=== PATIENT | female | born 1960 | race Caucasian/White ===

== ENCOUNTER 2018-06-04 15:09 | Emergency (ER) | payer OTHER ==
[~2018-06-04] VITALS: Ht 165.1 cm; Wt 147.0 kg
[2018-06-04] MEDS ORDERED: PROCARDIA10 MG PO (15:32)
[2018-06-04] MEDS ORDERED: MELOXICAM15 MG PO (15:32)
[2018-06-04] MEDS ORDERED: CVS IBUPROFEN200 M1 PO (15:33)
[2018-06-04] MEDS ORDERED: TORADOL PO (17:38)
[2018-06-04 17:43] VITALS: BP 155/87
== END 2018-06-04 17:47 | disposition home or self-care (01) | DRG 563 ==
LOC: ED 15:09
PROC: 2W38X1Z Immobilization of Right Upper Extremity using Splint (ICD-10-PCS; principal; 2018-06-04)
DX: S63.501A Unspecified sprain of right wrist, initial encounter (principal); W10.9XXA Fall (on) (from) unspecified stairs and steps, initial encounter; Y93.01 Activity, walking, marching and hiking; Y92.009 Unspecified place in unspecified non-institutional (private) residence as the place of occurrence of the external cause

== ENCOUNTER 2019-01-17 10:56 | Emergency (ER) | payer OTHER ==
[~2019-01-17] VITALS: Ht 165.1 cm; Wt 152.0 kg
[~2019-01-17 10:56] MED LIST: CVS IBUPROFEN200 M1 PO; MELOXICAM15 MG PO; PROCARDIA10 MG PO; TORADOL PO
[2019-01-17] MEDS ORDERED: PROAIR HFA108 MCG/AC ID (11:45)
[2019-01-17] MEDS ORDERED: MOTRIN400 MG/TAB PO (11:45)
[2019-01-17] MEDS ORDERED: FLEXERIL PO (13:46)
[2019-01-17] MEDS ORDERED: TORADOL PO (13:46)
[2019-01-17 14:18] VITALS: BP 153/67
== END 2019-01-17 14:18 | disposition home or self-care (01) | DRG 552 ==
LOC: ED 10:56
DX: S16.1XXA Strain of muscle, fascia and tendon at neck level, initial encounter (principal); S20.211A Contusion of right front wall of thorax, initial encounter; S70.01XA Contusion of right hip, initial encounter; S00.93XA Contusion of unspecified part of head, initial encounter; I10 Essential (primary) hypertension; V49.50XA Passenger injured in collision with unspecified motor vehicles in traffic accident, initial encounter